=== PATIENT | male | born 1985 | race Caucasian/White ===

== ENCOUNTER 2020-07-12 11:51 | Emergency (ER) | payer OTHER ==
[2020-07-12 12:17] VITALS: BP 125/78; PULSE 94; TEMP 98.6; BMI 28.3
== END 2020-07-12 12:58 | disposition home or self-care (01) ==
LOC: JERFT 11:51 → JER 11:51 → JERFT 12:58
DX: S46.911A Strain of unspecified muscle, fascia and tendon at shoulder and upper arm level, right arm, initial encounter (principal)
CPT/HCPCS: 99282-25

== ENCOUNTER 2020-10-27 23:17 | Emergency (ER) | payer BC, OTHER ==
[2020-10-27 23:35] VITALS: BP 106/59; PULSE 98; TEMP 97.6; BMI 29.1
== END 2020-10-28 02:23 | disposition home or self-care (01) ==
LOC: JER 23:17
PROC: 0HQ1XZZ Repair Face Skin, External Approach (ICD-10-PCS; principal; 2020-10-27)
DX: S01.21XA Laceration without foreign body of nose, initial encounter (principal); W21.07XA Struck by softball, initial encounter
CPT/HCPCS: 70486-TC; 99284-25

== ENCOUNTER 2020-11-01 09:35 | Emergency (ER) | payer BC ==
[2020-11-01 09:38] VITALS: BP 120/82; PULSE 89; TEMP 98; BMI 29.1
== END 2020-11-01 10:02 | disposition home or self-care (01) ==
LOC: JERFT 09:35
DX: S01.81XA Laceration without foreign body of other part of head, initial encounter (principal); W21.07XA Struck by softball, initial encounter; Z48.02 Encounter for removal of sutures
CPT/HCPCS: 99283-25; 99285-25

== ENCOUNTER 2022-07-26 19:31 | Emergency (ER) | payer OTHER ==
[2022-07-26 19:35] VITALS: BP 125/73; PULSE 87; RESP 18; TEMP 97.8; BMI 29.8
[2022-07-26] MEDS ORDERED: ACETAMINOPHEN 500 MG TABLET (FP) PO ONE (20:05)
== END 2022-07-26 20:46 | disposition home or self-care (01) ==
LOC: JERFT 19:31
DX: S76.912A Strain of unspecified muscles, fascia and tendons at thigh level, left thigh, initial encounter (principal); W10.9XXA Fall (on) (from) unspecified stairs and steps, initial encounter; X50.0XXA Overexertion from strenuous movement or load, initial encounter
CPT/HCPCS: 99283-25

== ENCOUNTER 2023-11-03 22:57 | Emergency (ER) | payer BC, OTHER ==
[2023-11-03 23:03] VITALS: TEMP 97.8; BMI 29.0
[2023-11-03] MEDS ORDERED: ACETAMINOPHEN INJECTION 100 ML ONE (23:27)
[2023-11-03] MEDS: ACETAMINOPHEN 1000 MG/100 ML BAG IVPB ONE (23:37)
[2023-11-03 23:41] LABS: EOS % 2.5 % (0-4.5); HEMATOCRIT 46.7 % (35.4-49); LYMPH % 37.9 % (8-40); MCH 29.7 pg (25.7-33.7); MCHC 34.2 g/dl (32.0-35.9); MEAN CELL VOLUME 86.8 fl (80-96); MEAN PLT VOLUME 8.9 fl (7.5-11.1); MONO % 7.1 % (3.8-10.2); NEUT % 51.5 % (42.8-82.8); PLATELET COUNT 246 10^3/uL (134-434); RBC 5.38 M/mm3 (4.00-5.60); RDW 13.7 % (11.9-15.9); WHITE BLOOD COUNT 10.7 K/mm3 (4.0-10.0)
[2023-11-03 23:46] LABS: INR 0.95 (0.83-1.09); PROTHROMBIN TIME (PATIENT) 10.9 SEC (9.7-13.0)
[2023-11-04] LABS: ACTIVATED PTT 32.9 SECONDS (25.2-36.5); POTASSIUM 4.3 mmol/L (3.5-5.1)
[2023-11-04 00:02] LABS: BLOOD UREA NITROGEN 22.5 mg/dL (7-18); CALCIUM 9.2 mg/dL (8.5-10.1)
[2023-11-04 00:06] LABS: CREATININE 1.1 mg/dL (0.55-1.3)
[2023-11-04 00:07] LABS: BILIRUBIN,TOTAL 0.3 mg/dL (0.2-1); TOT PROT 7.1 g/dl (6.4-8.2)
[2023-11-04 02:01] VITALS: BP 115/75; PULSE 66; RESP 19
== END 2023-11-04 02:01 | disposition home or self-care (01) ==
LOC: JER 22:57
PROC: 3E033NZ Introduction of Analgesics, Hypnotics, Sedatives into Peripheral Vein, Percutaneous Approach (ICD-10-PCS; principal; 2023-11-03)
DX: R07.89 Other chest pain (principal)
CPT/HCPCS: 36415; 71046-TC-FY; 80053; 84484; 85025; 85610; 85730; 93005; 93010; 99285-25; J0131

== ENCOUNTER 2024-02-14 08:53 | Emergency (ER) | payer BC, OTHER ==
[2024-02-14 09:20] VITALS: BP 123/81; PULSE 89; RESP 16; TEMP 98.3; BMI 28.3
[2024-02-14] MEDS ORDERED: ACETAMINOPHEN 500 MG TABLET (FP) ONE (09:54)
[2024-02-14] MEDS: ACETAMINOPHEN 500 MG TABLET (FP) PO ONE (09:56)
== END 2024-02-14 11:35 | disposition home or self-care (01) ==
LOC: JERFT 08:53
DX: S49.91XA Unspecified injury of right shoulder and upper arm, initial encounter (principal); M19.022 Primary osteoarthritis, left elbow; X08.8XXA Exposure to other specified smoke, fire and flames, initial encounter
CPT/HCPCS: 73030-TC-LT-FY; 73070-TC-LT-FY; 99284-25